=== PATIENT | female | born 1970 | race Two or more races ===

== ENCOUNTER 2023-07-12 13:06 | Emergency (ER) | payer OTHER ==
[~2023-07-12] VITALS: Ht 162.6 cm; Wt 93.4 kg
[2023-07-12] MEDS ORDERED: TOPROL XL100 M1 PO (14:03)
[2023-07-12] MEDS ORDERED: HYDRALAZINE HCL10 MG PO (14:04)
[2023-07-12] MEDS ORDERED: METHYLPREDNISOLONE SOD SUCC 125 MG VIAL IV ONE (15:15)
[2023-07-12] MEDS ORDERED: GUAIFENESIN/DEXTROMETHORPHAN 100 MG/5 ML ML PO ONE (15:15)
[2023-07-12 16:05] LABS: HEMATOCRIT 39.3 % (36.0-45.00); HEMOGLOBIN 13.6 g/dL (12.0-15.00); MEAN CELL VOLUME 88.1 fL (80.00-100.00); MEAN CORPUSCULAR HEMOGLOBIN 30.4 pg (27.00-32.0); MEAN CORPUSCULAR HGB CONC 34.5 g/dl (32.0-36.0); PLATELET COUNT 337 K/uL (150-450); RED BLOOD COUNT 4.47 M/uL (4.00-6.00); RED CELL DISTRIBUTION WIDTH 13.5 % (11.5-14.5)
[2023-07-12] MEDS ORDERED: IPRAT-ALBUT 0.5-3 ML IH (17:45)
[2023-07-12] MEDS ORDERED: ZITHROMAX500 MG PO (17:45)
[2023-07-12] MEDS ORDERED: BUDESONIDE0.5 MG/21 IH (17:46)
[2023-07-12] MEDS ORDERED: BENZONATATE100 MG PO (17:57)
[2023-07-12] MEDS ORDERED: TUSSIN DM SYRU118 ML PO (17:57)
== END 2023-07-12 18:04 ==
LOC: ER 13:07
PROVIDERS: Nurse Practitioner Family
DX: R53.81 Other malaise (principal); J06.9 Acute upper respiratory infection, unspecified; Z20.822 Contact with and (suspected) exposure to COVID-19; I10 Essential (primary) hypertension